=== PATIENT | male | born 1985 | race Caucasian/White ===

== ENCOUNTER 2016-05-04 08:28 | Inpatient (IN) | payer OTHER ==
--- NOTE | ~2016-05-04 | PA ---
Unit #: [id number] #: [id number] Patient: AMERICA STILES [id number] [place] [address] [id number] I MR#: [id number] NAME: AMERICA STILES ROOM: P186 Age: 30 Sex: M Admission Date: 05/04/2016 : 1985 Date of Assessment: 05/04/2016 Attending Physician: Miles Leonardo M.D. Admitting Physician: Miles Leonardo M.D. Primary Care Physician: Primary Care Physician No PSYCHIATRIC ASSESSMENT LOCATION [facility] [address], room #180, bed #2. INFORMANTS The patient and chart, both seem reliable. CHIEF COMPLAINT "I've just abusing drugs. HISTORY OF PRESENTING ILLNESS This is a 30-year-old white male, admitted with issues of heroin dependency and benzodiazepine dependency, for which he has been using for the last several years on a daily basis. This combination of IV use for both specifically more the heroin and the benzos, but the patient does admit to shooting up benzodiazepines for first time solution frequently as well. The patient denied any SI or HI at this time, but he is very concerned about his detox as he has never been through it of a significant nature before because of constant use. The patient reports he uses over 1 g a day of heroin. Benzos are less maintained in terms of frequent amount, but it is daily as well. The patient is motivated for treatment, is self reporting at this point. Denied any issues with alcohol. No previous history of seizures. PAST PSYCHIATRIC HISTORY Nothing of significance in terms of treatment inpatient or outpatient previously. No history of SI, HI or any psychosis. FAMILY HISTORY Noncontributory. SOCIAL HISTORY The patient has significant other, has three children who are in the state's custody at this point, has worked with his father. He has good support network from parents. MEDICAL HISTORY Noncontributory. MEDICATION HISTORY Drug allergies include no known drug allergies. SUBSTANCE ABUSE HISTORY Is as noted above, no overt treatment previously beyond self-detaching at Unit #: [id number] #: [id number] Patient: AMERICA STILES home. Thankfully, no significant medical detox issues that required hospitalization previous to now. MENTAL STATUS EXAMINATION GENERAL APPEARANCE: Thin white male who appears significantly older than stated age. Dark sunken eyes are noted, but very good focus at this time. The patient is calm. No overt detox symptoms noted yet. The patient's last use was today. Speech was clear and coherent. Mood was anxious with a congruent affect. Thought process and content were grossly organized and linear. No overt evidence of psychosis. No active SI or HI now. The patient's memory was grossly intact. Alert and oriented x4. Associations are normal. Cognitive function is at baseline. Insight and judgment are limited. ASSETS Include supportive family. LIABILITIES Include continued ongoing substance abuse treatment. No outpatient care previously or inpatient care previously for that matter. No ability to establish it in a sustained manner in the patient will do when he leaves here. ADMITTING DIAGNOSES Include: 1. Opiate dependency. 2. Sedative hypnotic dependency. RECOMMENDATIONS/PSYCHIATRIC PLAN Continues the patient's admission for a detox in a controlled manner of the substances especially the benzos as well as the opiates, given his near daily use of benzos and comorbid use of heroin. The patient is at significant risk for detox and withdrawal symptoms that could be extremely at high risk and presentation unless we monitored appropriately. Treatment goals would be the resolution of the symptoms in a safe control manner. The patient currently on the detox plan for both and monitored by staff appropriately. Discharge planning will include community resources for after care as well as additional recommendation. human services worker will be offering. ESTIMATED LENGTH OF STAY Approximately 3 to 4 days depending on the patient's progress and response to treatment. Dictated by... Miles Leonardo M.D. SOLA/torrey TD: 05/05/2016 04:49 JOB #: [id number] Unit #: [id number] #: [id number] Patient: AMERICA STILES PSYCHIATRIC ASSESSMENT Page 1 of 1 X Miles Leonardo MD X PSYCHIATRIC ASSESSMENT
--- NOTE | ~2016-05-04 | DS ---
Unit #: [id number] #: [id number] Patient: AMERICA STILES [id number] [place] [address] [id number] MR#: [id number] NAME: AMERICA STILES ROOM: P186 Age: 30 Sex: M Admission Date: 05/04/2016 : 1985 Discharge Date: 05/07/2016 Attending Physician: Miles Leonardo M.D. Primary Care Physician: Primary Care Physician No DISCHARGE SUMMARY REASON FOR ADMISSION Issues with heroin dependency, benzodiazepine dependency and related withdrawals. DIAGNOSTIC STUDIES PERTINENT LABORATORY DATA: BMP which was grossly normal with the exception of chloride slightly low at 99 but otherwise remaining findings were normal. TSH normal at 0.51. T4 normal at 0.88. CBC was grossly within normal parameters. Urine toxicology showed patient positive for benzodiazepines upon arrival though was otherwise within acceptable limits. No other test performed. HOSPITAL COURSE Patient was admitted for safety and stabilization for detox from benzodiazepines and opiates as noted. Patient noted significant withdrawal symptoms through most of his admission but tolerated direction from staff and medications well. He was very isolated to self in his room but did make attempts for intake p.o. and fluids as he could tolerate. He showed gradual progress over the hospitalization. Unfortunately on the night of the , patient decided he wanted to leave the hospital. He was still notably having some withdrawal symptoms and was felt he could have benefitted from staying, so he was allowed to be let go against medical advice. Patient was made aware of this and still decided to leave the hospital. Staff reported he was denying any SI or HI or any other acute complaints of that nature simply because he "just wanted to go home" and he was allowed to leave. No follow up care was prescribed. No medications were provided. DISCHARGE DIAGNOSES 1. Sedative/hypnotic dependency with withdrawal. 2. Opiate dependency with withdrawal. DISCHARGE INSTRUCTIONS None as patient was allowed to discharge against medical advice. DISCHARGE MEDICATIONS None. CONDITION AT DISCHARGE Improving. PROGNOSIS Unit #: [id number] #: [id number] Patient: AMERICA STILES Guarded. DIET AND ACTIVITY Diet, regular. Activity as tolerated. Dictated by... Miles Leonardo M.D. SOLA/tata TD: 05/08/2016 15:04 JOB #: [id number] DISCHARGE SUMMARY Page 1 of 1 X Miles Leonardo MD DISCHARGE SUMMARY
--- NOTE | ~2016-05-04 | PN ---
Unit #: [id number] #: [id number] Patient: AMERICA STILES [id number] [facility] [address] [place] [address] [id number] I MR#: [id number] NAME: AMERICA STILES ROOM: P186 Age: 30 Sex: M Admission Date: 05/04/2016 : 1985 Attending Physician: Miles Leonardo M.D. Admitting Physician: Miles Leonardo M.D. Primary Care Physician: Primary Care Physician Kassy BENITEZ PROGRESS NOTES DATE 05/07/2016 HISTORY OF PRESENT ILLNESS This is a 30-year-old white male here with ongoing issues of detox from heroin and benzodiazepines. The patient continuing to report today feeling very ill. He does report feeling slightly better compared to yesterday, but still noting issues with sleep, although they were improved compared to the night before with increased medication, but he is also (1) __ issues with poor energy, anxiety, aches and pains. Some GI cramping and poor hunger and appetite. Diaphoresis is still noted today but is improved. The patient's vital signs were low today, and so he did not get his morning Ativan unfortunately, but is still reporting CIWA scores somewhere around 3 to 4. MENTAL STATUS EXAMINATION General Appearance: This is a limitedly groomed white male who appears older than stated age. Limited eye contact today. Diaphoretic with mild tremors in hands still noted. Speech was clear and coherent. Mood was anxious and dysphoric with a constricted affect. Thought process and content were fairly organized and linear. No overt evidence of psychosis. No SI, no HI reportedly elicited today. The patient's memory was grossly intact. Associations are normal. The patient is alert and oriented x4. Cognitive functioning is at baseline. Insight and judgment improving but still limited regarding substance abuse. RECOMMENDATIONS 1. We will continue the patient's ongoing detox process here in the hospital with admission. The patient continuing to show signs and symptoms, but improvement is noted today. We will continue to monitor in a safe and controlled environment here, and work towards disposition. 2. We will continue to monitor the patient's progress while in the hospital. We will leave all medications where they currently are as he seems to be improving and vital signs are starting to stabilize. Dictated by... Miles Leonardo M.D. Unit #: [id number] #: [id number] Patient: AMERICA STILES SOLA/jose r TD: 05/07/2016 12:42 JOB #: [id number] [facility] PROGRESS NOTES Page 1 of 1 X Miles Leonardo MD PROGRESS NOTE
--- NOTE | ~2016-05-04 | HP ---
Unit #: [id number] #: [id number] Patient: AMERICA STILES [id number] [place] [address] [id number] MR#: [id number] NAME: AMERICA STILES ROOM: P186 Age: 30 Sex: M Admission Date: 05/04/2016 : 1985 Attending Physician: Miles Leonardo M.D. Admitting Physician: Miles Leonardo M.D. Primary Care Physician: Primary Care Physician No HISTORY AND PHYSICAL HISTORY OF PRESENT ILLNESS America is a 30 year old admitted to [facility] because of his drug use. He shoots heroin. PAST MEDICAL HISTORY 1. Long history of opioid abuse to include IV heroin. 2. Hepatitis C. PAST SURGICAL HISTORY Nothing reported. ALLERGIES Smokes 1 1/2 packs per day. Denies alcohol. Admits to a history of illicit drug use to include IV heroin. SOCIAL HISTORY She denies cigarettes, alcohol and illicit drug use. FAMILY HISTORY Medically noncontributory. REVIEW OF SYSTEMS CONSTITUTIONAL: No fever or chills. HEENT: Denies any sore throat, ear pain or runny nose. CARDIOVASCULAR: Denies chest pain, irregular heart rhythm or palpitations. CHEST: Denies shortness of breath or cough. No hemoptysis. GASTROINTESTINAL: Denies nausea, vomiting, diarrhea or chronic constipation. ENDOCRINE: Denies history of increased thirst or urination. No recent significant weight loss or gain. GENITOURINARY: Denies dysuria, frequency, or hematuria. SKIN: Denies any rashes. HEMATOLOGIC: Denies history of increased bleeding or bruising. MUSCULOSKELETAL: Denies any hot, swollen joints. No generalized muscle pain. NEUROLOGIC: Denies problems with vision or speech. No frequent, severe headaches. No numbness, tingling or weakness in any extremities. Denies loss of bladder or bowel control. CURRENT MEDICATIONS Detox protocol Unit #: [id number] #: [id number] Patient: AMERCIA STILES PHYSICAL EXAMINATION GENERAL: Alert, well-nourished, in no apparent distress. VITAL SIGNS: Blood pressure 110/62, heart rate 60, respirations 16, temperature 98.6. WEIGHT: 156 pounds. HEIGHT: 5'7". SKIN: Warm and dry without rash or lesion. HEENT: Normocephalic. TMs not viewed. Oral and nasal passages clear. Conjunctivae clear. Pupils equal, round and reactive to light and accommodation. Extraocular movements intact. NECK: Supple without lymphadenopathy or thyromegaly. HEART: Regular rate and rhythm without murmur. LUNGS: Clear. ABDOMEN: Soft, nontender. : Not done. EXTREMITIES: No evidence of cyanosis, clubbing or edema. Moves all extremities without focal deficit. NEUROLOGICAL: Grossly within normal limits. Cranial Nerves: II: Visual chamorro are intact. III, IV AND : Extraocular movements are intact. Pupils are equal, round and reactive to light. V: Facial sensation is grossly normal. VII: Facial movements and expression are normal. VIII: Auditory acuity grossly intact. IX, X: Uvula is midline. Phonation is normal. XI: Patient shrugs shoulders and turns head normally. XII: Tongue protrudes in the midline. Sensory and Motor Function: Sensory and motor sensation is grossly normal. Motor: moves all extremities well. Coordination: Gait is normal. Deep Tendon Reflexes: Intact. IMPRESSION Psychiatric admission RECOMMENDATIONS PSYCHIATRIC: Per psychiatrist. MEDICAL: I see no contraindications to participating in facility's activities. MEDICAL PROGNOSIS Good. MEDICAL CONDITION Stable. Dictated by... Yoon Beauchamp PEdA.-C. for Herson Denney/demetra TD: 05/05/2016 02:23 JOB #: [id number] Unit #: [id number] #: [id number] Patient: AMERICA STILES HISTORY AND PHYSICAL Page 1 of 1 X Yoon Beauchamp HISTORY AND PHYSICAL
--- NOTE | ~2016-05-04 | PN ---
Unit #: [id number] #: [id number] Patient: AMERICA STILES [id number] [place] [address] [id number] MR#: [id number] NAME: AMERICA STILES ROOM: P186 Age: 30 Sex: M Admission Date: 05/04/2016 : 1985 Attending Physician: Miles Leonardo M.D. Admitting Physician: Miles Leonardo M.D. Primary Care Physician: No Primary Care Physician [facility] PROGRESS NOTES DATE 05/05/2016 LOCATION [facility], room #186, bed #2. SUBJECTIVE UPDATE This is a 30-year-old white male, who is in the hospital with issues of heroin dependency, as well as benzodiazepine dependency. Patient has been compliant with care per staff with detox process ongoing. Patient most recently being documented scoring a CIWA score of 5, blood pressure 114/80 with pulse of 78. Patient is seen in his room today. Continues to complain of issues with some sleep disturbance, energy fatigue, moderate anxiety, stomach cramps but no diarrhea or vomiting. Patient has been further isolating himself per report. But pleasant and no behavioral issues. The patient denied any active SI today. MENTAL STATUS EXAM GENERAL APPEARANCE: This is a moderately groomed white male appears older than stated age. Limited eye contact today but fairly cooperative still. Speech was clear and coherent. Mood was "anxious" with a constricted affect. Thought process and content are fairly organized and linear. No overt evidence of psychosis. No SI and no HI reported or elicited. Patient's memory was grossly intact. Associations were normal and oriented x4. Cognitive function seems to be at baseline. Insight and judgment is limited but improving. RECOMMENDATIONS 1. Continue the patient's admission for safety and stabilization for ongoing detox issues. Patient appears to be going well and detox symptoms are resolving nicely. Patient is tolerating detox program without any abnormal behavior or motivational issues. Patient has been compliant with staff and redirection but still isolated to room. Will continue care under controlled and safe environment with hopes for further improvement as each day progresses. 2. Will continue to encourage ambulation, socialization, and discussion with staff. 3. Patient is to be seen by oncology social work still for after care options. Dictated by... Unit #: [id number] #: [id number] Patient: AMERICA STILES Herson Larson/gerard TD: 05/07/2016 12:09 JOB #: [id number] [facility] PROGRESS NOTES Page 1 of 1 X Miles Leonardo MD X PROGRESS NOTE
--- NOTE | ~2016-05-04 | PN ---
Unit #: [id number] #: [id number] Patient: AMERICA STILES [id number] [facility] [address] [place] [address] [id number] I MR#: [id number] NAME: AMERICA STILES ROOM: P186 Age: 30 Sex: M Admission Date: 05/04/2016 : 1985 Attending Physician: Miles Leonardo M.D. Admitting Physician: Miles Leonardo M.D. Primary Care Physician: Primary Care Physician Kassy BENITEZ PROGRESS NOTES DATE 05/06/2016 SUBJECTIVE UPDATE This is a 30-year-old male who is here in the hospital with issues of ongoing detox from both benzodiazepines and opiates. The patient reports feeling much worse today, complaining of aches, pains, sweating, tremors, hot and cold chills, poor sleep overnight. Stomach is quite cramping, but no diarrhea or vomiting yet. The patient continues to be fairly isolative to room because of these issues. The patient did look diaphoretic today. Eye contact was lower. The patient reports anxiety is also worse today. Staff noted in today's CIWA score that it is increased to 7. Even the vital signs this morning were normal at 109/68 with a pulse of 69. MENTAL STATUS EXAMINATION General Appearance: This is a limitedly groomed white male, diaphoretic, positive tremors noted in upper extremities, limited eye contact. Speech was clear but brief. Mood was dysphoric, anxious with a blunted affect. Thought process and content were fairly organized and linear. No overt evidence of psychosis. No SI, no HI reportedly elicited. The patient's memory was grossly intact. Associations were normal. He is alert and oriented x4. Cognitive functioning seems to be at baseline. Insight and judgment remain limited. RECOMMENDATIONS 1. Continue the patient's admission for detox purposes basically from benzodiazepines as well as the opiates for comorbid complications. Overall the patient most likely peaking in the next 24 hours with his withdrawal symptoms and needs careful monitoring in a safe and prudent environment such as here. Staff encouraged to increase the patient's Seroquel at nighttime to 100 mg to help with better sleep and p.r.n.s per his needed symptoms. We will continue to monitor regularly in the morning. 2. We will continue to encourage ambulation, p.o. intake, and plenty of fluids, and monitor closely for any changes in presentation, especially diarrhea or emesis becomes an issue. 3. We will continue to monitor mood issues and make sure they do not deteriorate further while possible. Dictated by... Unit #: [id number] #: [id number] Patient: AMERICA STILES Herson Atkinson/jose r TD: 05/07/2016 11:47 JOB #: [id number] [facility] PROGRESS NOTES Page 1 of 1 X Miles Leonardo MD X PROGRESS NOTE
[~2016-05-04 08:28] MED LIST: BACTRIM DS TABL1 TA1 PO; DARVOCET-N 1001 TA2 PO; IBUPROFEN PO; KEFLEX PO; KEFLEX500 M1 PO; MOBIC PO; MOTRIN100 MG PO; NO MEDICATIONS; ORUDIS75 M1 PO; PEN-VEE K PO; PREDNISONE PO; ULTRAM PO; VICODIN 5/500 T1 TAB PO; VICODIN PO; VOLTAREN75 MG PO
[2016-05-05 12:25] LABS: BASOPHIL% 0.6 % (0-2.5); EOSINOPHIL# 0.2 X10e3 (0-0.7); EOSINOPHIL% 4.4 % (0.0-7.0); HEMATOCRIT 41.1 % (38.0-50.0); HEMOGLOBIN 13.5 gm/dL (13.0-16.0); LYMPHOCYTE# 1.5 X10e3 (1.0-3.5); LYMPHOCYTE% 31.3 % (17.0-45.0); MEAN CELL VOLUME 85.9 FL (83-96); MEAN CORPUSCULAR HEMOGLOBIN 28.2 PG (28-34); MEAN CORPUSCULAR HGB CONC 32.9 g/dL (30-36); MEAN PLATELET VOLUME 9.9 FL (6.5-11.5); MONOCYTE# 0.5 X10e3 (0-1.0); NEUTROPHIL# 2.6 X10e3 (1.5-7.1); NEUTROPHIL% 52.7 % (40-75); PLATELET COUNT 190 X10e3 (140-420); RED BLOOD COUNT 4.79 X10e (3.90-5.60); RED CELL DISTRIBUTION WIDTH 13.8 % (11.0-15.5); WHITE BLOOD COUNT 4.9 X10e3 (4.0-10.5)
[2016-05-05 12:26] LABS: DIFF IND NO
[2016-05-05 12:43] LABS: BILIRUBIN,TOTAL 0.7 mg/dL (0.2-2.0); CALCIUM SERUM 8.9 mg/dL (8.4-10.2); CREATININE SERUM 0.6 mg/dL (0.6-1.4); POTASSIUM 4.5 mmol/L (3.5-5.1)
[2016-05-05 12:48] LABS: THYROID STIMULATING HORMONE 0.51 uIU/ml (0.34-5.60)
[2016-05-05 12:55] LABS: FREE THYROXIN (T4) 0.88 ng/dL (0.58-1.64)
[2016-05-07 10:43] LABS: URINE APPEARANCE CLEAR; URINE BILIRUBIN NEG (NEG); URINE BLOOD NEG (NEG); URINE COLOR YELLOW; URINE GLUCOSE NEG (NEG); URINE KETONE NEG (NEG); URINE LEUKOCYTE ESTERASE NEG (NEG); URINE NITRATE NEG (NEG); URINE PROTEIN NEG (NEG); URINE SPECIFIC GRAVITY 1.008 (1.003-1.035)
[2016-05-07 10:53] LABS: AMPHETAMINE NEG (NEG); BARBITURATES NEG (NEG); BENZODIAZEPINES POS (NEG); COCAINE NEG (NEG); MARIJUANA NEG (NEG); OPIATES NEG (NEG); TRICYCLIC ANTIDEPRESSANTS NEG (NEG); U METHADONE NEG (NEG)
== END 2016-05-07 20:55 | disposition left against medical advice (07) | DRG 894 ==
LOC: P1E 08:28
PROVIDERS: Psychiatry & Neurology Psychiatry
PROC: HZ2ZZZZ Detoxification Services for Substance Abuse Treatment (ICD-10-PCS; principal; 2016-05-04)
DX: F11.23 Opioid dependence with withdrawal (principal); B19.20 Unspecified viral hepatitis C without hepatic coma; F17.210 Nicotine dependence, cigarettes, uncomplicated; F13.239 Sedative, hypnotic or anxiolytic dependence with withdrawal, unspecified
CPT/HCPCS: 80053; 80307; 81003; 84439; 84443; 85025; 86592

== ENCOUNTER 2016-05-25 06:11 | Emergency (ER) | payer OTHER ==
--- NOTE | ~2016-05-25 | CR20 ---
[facility] A Service of [facility] & [facility] RADIOLOGY TEXT RESULTS PATIENT: AMERICA STILES LOCATION: [facility] : 85 UNIT #: [id number] AGE: [address]: Yoon Rutherford APRN SEX: M ORDER DR: [id number] [facility] [address]. [place], [place] [address] [id number] E MR#: [id number] Acc #: [id number] NAME: AMERICA STILES : 1985 SEX: M STUDY DATE/TIME: 05/25/2016 5:55 UNIT: [facility] ROOM: STUDY DESCRIPTION: CR Ankle Min 3 Views Lt Attending Physician: Yoon Rutherford A.P.R.N. Ordering Physician: Ed Doctor [id number] [facility] Primary Care Physician: Primary Care Physician No MEDICAL IMAGING REPORT This report is preliminary unless electronic signature is present EXAM Left ankle HISTORY Ankle pain after stepping in a hole last night. TECHNIQUE 3 views the ankle were obtained. FINDINGS AP, lateral, and oblique projections of the ankle show satisfactory integrity of the joint mortise with a smooth articular surface. There is no identifiable fracture, dislocation, or radiopaque foreign body. IMPRESSION Normal left ankle. Dictated by... Mario Whalen M.D. THIS IS AN ELECTRONICALLY VERIFIED REPORT Mario Whalen M.D. at 05/25/2016 3:47 PM RENATO/vinnie TD: 05/25/2016 07:44 JOB #: [id number] MEDICAL IMAGING REPORT Page 1 of 1 COPY
--- NOTE | ~2016-05-25 | CR126 ---
[facility] A Service of [facility] & [facility] RADIOLOGY TEXT RESULTS PATIENT: AMERICA STILES LOCATION: [facility] : 85 UNIT #: [id number] AGE: [address]: Yoon Rutherford APRN SEX: M ORDER DR: [id number] [facility] [address] [place], [place] [address] [id number] E MR#: [id number] Acc #: [id number] NAME: AMERICA STILES : 1985 SEX: M STUDY DATE/TIME: 05/25/2016 5:53 UNIT: [facility] ROOM: STUDY DESCRIPTION: CR Foot Complete Min 3 View Lt Attending Physician: Yoon Rutherford A.P.R.N. Ordering Physician: [facility] Primary Care Physician: Primary Care Physician No MEDICAL IMAGING REPORT This report is preliminary unless electronic signature is present EXAM Left foot HISTORY Patient stepped in a hole last night. Foot pain. TECHNIQUE 3 views of the foot were obtained and compared with 06/24/2013 FINDINGS The tarsal, metatarsal, and phalangeal elements are all anatomically normal in position and alignment. There are no articular defects. No fractures or radiopaque foreign bodies in the soft tissues are apparent. IMPRESSION Normal foot. Dictated by... Mario Whalen M.D. THIS IS AN ELECTRONICALLY VERIFIED REPORT Mario Whalen M.D. at 05/25/2016 3:47 PM RLF/meg TD: 05/25/2016 07:32 JOB #: [id number] MEDICAL IMAGING REPORT Page 1 of 1 COPY
--- NOTE | ~2016-05-25 | CR252 ---
[facility] A Service of [facility] & [facility] RADIOLOGY TEXT RESULTS PATIENT: AMERICA STILES LOCATION: [facility] : 85 UNIT #: [id number] AGE: [address]: Yoon Rutherford APRN SEX: M ORDER DR: [id number] [facility] [address] [place], [place] [address] [id number] E MR#: [id number] Acc #: [id number] NAME: AMERICA STILES : 1985 SEX: M STUDY DATE/TIME: 05/25/2016 5:56 UNIT: [facility] ROOM: STUDY DESCRIPTION: CR Tibia and Fibula 2 Views Lt Attending Physician: Yoon Rutherford A.P.R.N. Ordering Physician: [facility] Primary Care Physician: Primary Care Physician No MEDICAL IMAGING REPORT This report is preliminary unless electronic signature is present EXAM Left tibia and fibula HISTORY Leg pain after stepped in a hole last night. TECHNIQUE 2 views tibia and fibula were obtained. FINDINGS There is no evidence of fracture, dislocation, or radiopaque foreign body. IMPRESSION Normal tibia and fibula. Dictated by... Mario Whalen M.D. THIS IS AN ELECTRONICALLY VERIFIED REPORT Mario Whalen M.D. at 05/25/2016 3:47 PM RLF/meg TD: 05/25/2016 07:34 JOB #: [id number] MEDICAL IMAGING REPORT Page 1 of 1 COPY
== END 2016-05-25 07:03 | disposition home or self-care (01) ==
LOC: CED 06:11
DX: S93.402A Sprain of unspecified ligament of left ankle, initial encounter (principal); F17.210 Nicotine dependence, cigarettes, uncomplicated; W22.8XXA Striking against or struck by other objects, initial encounter; Y92.89 Other specified places as the place of occurrence of the external cause
CPT/HCPCS: 29405; 73590; 73610; 73630; 96372; 99284; J1885